=== PATIENT | male | born 1930 | race Caucasian/White ===

== ENCOUNTER → 2016-12-02 | Outpatient (CLI) | payer MEDICARE, OTHER ==
[~2016-12-02] MED LIST: ALEVE220 MG PO; ALIGN4 MG PO; ASPIRIN81 MG PO; ATORVASTATIN CA80 MG PO; BYSTOLIC2.5 MG PO; CENTRUM SILVER1 EAC1 PO; PREDNISONE20 MG PO; PRILOSEC40 MG PO
== END | disposition short-term general hospital (02) ==
LOC: CLCARD 08:58
DX: I25.10 Atherosclerotic heart disease of native coronary artery without angina pectoris (principal); I49.3 Ventricular premature depolarization; I10 Essential (primary) hypertension; E78.5 Hyperlipidemia, unspecified; R01.1 Cardiac murmur, unspecified; Z98.890 Other specified postprocedural states; R94.31 Abnormal electrocardiogram [ECG] [EKG]